=== PATIENT | male | born 1950 | race Caucasian/White ===

== ENCOUNTER 2017-08-24 22:22 | Inpatient (IN) | payer MEDICARE, OTHER ==
[~2017-08-24] VITALS: Ht 182.9 cm; Wt 65.1 kg
--- NOTE | ~2017-08-24 | CN ---
PATIENT NAME:DAIJA RENE MEDICAL RECORD: [id number] : 50 LOCATION:[facility] ADMIT DATE: 08/25/17 ACCOUNT: [id number] CONSULTING PHYSICIAN: DEBORAH WHITNEY MD REFERRING PHYSICIAN: LEANN MARTINEZ MD DATE OF CONSULTATION: 08/31/2017 CONSULT REQUESTING PHYSICIAN: Dr. Mari REASON FOR CONSULTATION: Broncholith. HISTORY OF PRESENT ILLNESS: Mr. Rene is a 67-year-old gentleman, who was admitted with left empyema, loculated fluid. He underwent decortication yesterday. During the procedure, the fiberoptic bronchoscopy showed that he has broncholith in the right lower lobe bronchus. According to the patient, he does not have any exposure to TB, fungal infection, or any foreign body aspiration. 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 REVIEW OF SYSTEMS: Mainly in the history of present illness. PAST MEDICAL HISTORY: 1. Gastroesophageal reflux disease. 2. Chronic cough. The patient is a chronic pipe smoker. No documented COPD. PAST SURGICAL HISTORY: 1. He has a PEG tube placement. 2. Tonsillectomy 3. Adenoidectomy. ALLERGIES: No known drug allergies. PRESENT MEDICATIONS: He is on Levaquin IV. His other medication is reviewed. PERSONAL AND SOCIAL HISTORY: The patient is still current everyday pipe smoker. He is a nondrinker. FAMILY HISTORY: Noncontributory. PHYSICAL EXAMINATION: GENERAL: Now, the patient is lying comfortably in bed. He is not in acute distress. VITAL SIGNS: The blood pressure is 100/59, pulse is 100, respiration is 25, temperature is 99.4, SpO2 is 92% on 2 liter nasal cannula. HEENT: Conjunctiva is pink. Sclera is not icteric. NECK: Neck is supple. No JVD. CHEST: There are bilateral crackles. There is a chest tube on the left side. There are crackles, wheeze on forceful expiration. HEART: Rhythm regular, normal sound. No murmur. ABDOMEN: Soft. Bowel sounds present. No hepatosplenomegaly. RECTAL: Deferred. EXTREMITIES: No cyanosis, no clubbing, no pedal edema. SKIN: The skin is warm, normal turgor. CENTRAL NERVOUS SYSTEM: The patient is awake and alert. There are no obvious cranial nerve abnormalities. The gait was not tested. CONSULT REPORT [id number] DAIJA RENE IMAGING: Chest radiograph: There is no pneumothorax. There is small left pleural effusion. There is improvement of the left basilar consolidation. There is near complete resolution of right mid lung atelectasis. The chest tube is in place. OTHER LABORATORY DATA: CBC: The WBC is 23.1, hemoglobin 10.9, hematocrit 33.2, the platelet count 391. Chemistry: Sodium 139, potassium is 3.8, BUN is 8, creatinine 0.6. ABG: The pH is 7.43, pCO2 is 35.1, the pO2 of 72, bicarbonate is 23.5. IMPRESSION: 1. Acute hypoxic respiratory failure secondary to pneumonia, left lower lobe. Post-procedure decortication. 2. Right lung broncholith. 3. Left-sided empyema status post decortication. 4. Chronic obstructive pulmonary disease, suspect with a history of tobacco dependence syndrome, pipe smoking. 5. Leukocytosis. 6. Gastroesophageal reflux disease. RECOMMENDATIONS: 1. I will start him on albuterol/ipratropium nebulizer, Brovana and budesonide nebulizer. Continue empiric Levaquin. 2. Follow up on the culture. 3. Check high-resolution CT scan of the chest for the broncholith. 4. Check fungal serology. Dr. Mari, thank you for involving Mr. Rene. TRANSINT:[id number] Voice Confirmation ID: [id number] DOCUMENT ID: [id number] DEBORAH WHITNEY MD at 1340 CC: JEROD MARI MD [id number] DICTATION DATE: 08/31/17 1147 PLACEMENT COORDINATOR: 08/31/17 1242 ADM IN [facility] [address] [facility] [place] [address]
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
[2017-08-24 23:13] LABS: BASOPHILS 0.1 % (0-2); EOSINOPHILS 0.1 % (0-7); HEMOGLOBIN 14.4 g/dL (13.5-17.5); IMMATURE GRANULOCYTES 0.3 % (0-5); LYMPHOCYTES 4.2 % (15-50); MCH 29.1 pg (26.0-34.0); MCHC 33.5 g/dL (31.0-37.0); MEAN PLATELET VOLUME 8.9 fL (7.4-10.4); MONOCYTES 8.5 % (2-11); NEUTROPHILS 86.8 % (40-80); PLATELET COUNT 355 10x3/uL (130-400); RBC 4.94 10x6/uL (4.20-6.10); RDW 13.5 % (11.5-14.5); WBC 19.3 10x3/uL (4.8-10.8)
[2017-08-24 23:29] LABS: ALKALINE PHOSPHATASE 85 U/L (46-116); ALT (SGPT) 29 U/L (10-68); BILIRUBIN - TOTAL 1.11 mg/dL (0.2-1.3); CALC OSMOLALITY 279 mosm/kg (275-300); CALCIUM 9.3 mg/dL (8.5-10.1); CARBON DIOXIDE 27.2 mmol/L (21.0-32.0); CHLORIDE - SERUM 102 mmol/L (98-107); CREATININE - SERUM 0.9 mg/dL (0.6-1.3); GLUCOSE 147 mg/dL (74-106); POTASSIUM - SERUM 4.1 mmol/L (3.5-5.1); PROTEIN - SERUM 7.6 g/dL (6.4-8.2); SODIUM 138 mmol/L (136-145); UREA NITROGEN 15 mg/dL (7-18); eGFR NON AFRICAN AMERICAN 89 mL/min (90-120)
[2017-08-24 23:41] LABS: CHOL - HDL RATIO 3.3 ratio (2.3-4.9); CKMB 0.9 U/L (0.0-3.6); CREATINE KINASE 78 UL (21-232); HDL CHOLESTEROL 39 mg/dL (32-96); LDL CHOLESTEROL 78 mg/dL (0-100); PRO BNP 160 pg/mL (0-125); TRIGLYCERIDE 69 mg/dL (30-200)
[2017-08-24 23:43] LABS: CHOLESTEROL, TOTAL 130 mg/dL (0-200); TROPONIN-I < 0.017 ng/mL (0.000-0.060)
[2017-08-25 07:37] LABS: CALC OSMOLALITY 274 mosm/kg (275-300); CALCIUM 8.9 mg/dL (8.5-10.1); CARBON DIOXIDE 26.3 mmol/L (21.0-32.0); CHLORIDE - SERUM 102 mmol/L (98-107); CREATININE - SERUM 0.8 mg/dL (0.6-1.3); GLUCOSE 101 mg/dL (74-106); POTASSIUM - SERUM 4.2 mmol/L (3.5-5.1); SODIUM 137 mmol/L (136-145); UREA NITROGEN 14 mg/dL (7-18); eGFR NON AFRICAN AMERICAN > 90 mL/min (90-120)
[2017-08-25 08:07] LABS: HEMATOCRIT 40.3 % (42.0-54.0); HEMOGLOBIN 13.3 g/dL (13.5-17.5); MCV 87.8 fL (80.0-100.0); MEAN PLATELET VOLUME 9.1 fL (7.4-10.4); PLATELET COUNT 364 10x3/uL (130-400); RBC 4.59 10x6/uL (4.20-6.10); RDW 13.5 % (11.5-14.5); WBC 20.7 10x3/uL (4.8-10.8)
[2017-08-25 08:58] LABS: LYMPHOCYTES 8 % (15-50); MONOCYTES 10 % (2-11); NEUTROPHILS 82 % (40-80); PLATELET ESTIMATE NORMAL; ROULEAUX OCC
[2017-08-25 11:33] LABS: CREATINE KINASE 267 UL (21-232); TROPONIN-I < 0.017 ng/mL (0.000-0.060)
[2017-08-25] MEDS ORDERED: MULTIPLE VITAMI1 TA1 PO (16:41)
[2017-08-25] MEDS ORDERED: ALEVE220 MG PO (16:41)
[2017-08-25] MEDS ORDERED: CLARITIN 10 MG10 MG PO (16:42)
[2017-08-25] MEDS ORDERED: BAYER CHEWABLE81 MG PO (16:42)
[2017-08-25 17:49] LABS: CKMB 2.2 U/L (0.0-3.6); CREATINE KINASE 265 UL (21-232)
[2017-08-25 17:51] LABS: TROPONIN-I < 0.017 ng/mL (0.000-0.060)
[2017-08-25 18:33] VITALS: BP 103/73; BMI 22.4
[2017-08-25 21:52] VITALS: BP 118/67
[2017-08-25 22:57] LABS: CKMB 1.9 U/L (0.0-3.6)
[2017-08-25 23:03] LABS: CREATINE KINASE 2 UL (21-232); TROPONIN-I < 0.017 ng/mL (0.000-0.060)
[2017-08-26 05:34] VITALS: BP 108/54
[2017-08-26 05:57] LABS: BASOPHILS 0.1 % (0-2); EOSINOPHILS 0.7 % (0-7); HEMATOCRIT 37.8 % (42.0-54.0); HEMOGLOBIN 12.4 g/dL (13.5-17.5); IMMATURE GRANULOCYTES 0.1 % (0-5); LYMPHOCYTES 9.7 % (15-50); MCH 28.7 pg (26.0-34.0); MCHC 32.8 g/dL (31.0-37.0); MCV 87.5 fL (80.0-100.0); MEAN PLATELET VOLUME 8.8 fL (7.4-10.4); MONOCYTES 9.6 % (2-11); NEUTROPHILS 79.8 % (40-80); PLATELET COUNT 323 10x3/uL (130-400); RBC 4.32 10x6/uL (4.20-6.10); RDW 13.5 % (11.5-14.5); WBC 16.1 10x3/uL (4.8-10.8)
[2017-08-26 06:03] LABS: CALC OSMOLALITY 275 mosm/kg (275-300); CALCIUM 8.5 mg/dL (8.5-10.1); CARBON DIOXIDE 25.5 mmol/L (21.0-32.0); CHLORIDE - SERUM 104 mmol/L (98-107); CREATININE - SERUM 0.7 mg/dL (0.6-1.3); GLUCOSE 101 mg/dL (74-106); POTASSIUM - SERUM 3.8 mmol/L (3.5-5.1); SODIUM 138 mmol/L (136-145); UREA NITROGEN 12 mg/dL (7-18); eGFR NON AFRICAN AMERICAN > 90 mL/min (90-120)
[2017-08-26 07:55] VITALS: BP 106/60
[2017-08-26 11:49] VITALS: BP 88/60
[2017-08-26 13:43] VITALS: BMI 22.3
[2017-08-26 15:37] VITALS: BP 114/62
[2017-08-26 17:18] LABS: INR 1.2 (0.85-1.17); PROTIME 14.7 SECONDS (11.6-15.0)
[2017-08-26 17:19] LABS: APTT 34.4 SECONDS (22.8-39.4)
[2017-08-26 20:17] LABS: PROTEIN - BODY FLUID 3.9 G/DL
[2017-08-26 21:13] LABS: MACROPHAGES BF 1 %; NEUT - BF 90 %
[2017-08-26 22:49] VITALS: BP 112/81
[2017-08-27 02:50] VITALS: BP 94/62
[2017-08-27 05:04] LABS: BASOPHILS 0.2 % (0-2); EOSINOPHILS 2.3 % (0-7); HEMATOCRIT 32.3 % (42.0-54.0); HEMOGLOBIN 10.5 g/dL (13.5-17.5); IMMATURE GRANULOCYTES 0.1 % (0-5); LYMPHOCYTES 13.4 % (15-50); MCH 28.2 pg (26.0-34.0); MCHC 32.5 g/dL (31.0-37.0); MCV 86.6 fL (80.0-100.0); MEAN PLATELET VOLUME 8.9 fL (7.4-10.4); MONOCYTES 12.9 % (2-11); NEUTROPHILS 71.1 % (40-80); PLATELET COUNT 293 10x3/uL (130-400); RBC 3.73 10x6/uL (4.20-6.10); RDW 13.5 % (11.5-14.5)
[2017-08-27 05:16] LABS: WBC 11.2 10x3/uL (4.8-10.8)
[2017-08-27 05:24] LABS: CALC OSMOLALITY 268 mosm/kg (275-300); CALCIUM 7.6 mg/dL (8.5-10.1); CARBON DIOXIDE 24.1 mmol/L (21.0-32.0); CHLORIDE - SERUM 102 mmol/L (98-107); CREATININE - SERUM 0.6 mg/dL (0.6-1.3); GLUCOSE 89 mg/dL (74-106); POTASSIUM - SERUM 3.4 mmol/L (3.5-5.1); SODIUM 136 mmol/L (136-145); eGFR NON AFRICAN AMERICAN > 90 mL/min (90-120)
[2017-08-27 05:29] LABS: UREA NITROGEN 8 mg/dL (7-18)
[2017-08-27 05:54] VITALS: BP 94/65
[2017-08-27 07:41] VITALS: BP 85/57
[2017-08-27 11:10] VITALS: BP 100/61
[2017-08-27 15:16] VITALS: BP 106/44
[2017-08-27 22:24] VITALS: BP 111/74
[2017-08-28 02:24] VITALS: BP 108/74
[2017-08-28 05:25] VITALS: BP 119/75
[2017-08-28 05:59] LABS: BASOPHILS 0.2 % (0-2); EOSINOPHILS 1.3 % (0-7); HEMATOCRIT 33.1 % (42.0-54.0); HEMOGLOBIN 10.9 g/dL (13.5-17.5); IMMATURE GRANULOCYTES 0.2 % (0-5); LYMPHOCYTES 8.5 % (15-50); MCH 27.9 pg (26.0-34.0); MCHC 32.9 g/dL (31.0-37.0); MCV 84.9 fL (80.0-100.0); MEAN PLATELET VOLUME 8.9 fL (7.4-10.4); MONOCYTES 14.3 % (2-11); NEUTROPHILS 75.5 % (40-80); PLATELET COUNT 330 10x3/uL (130-400); RDW 13.7 % (11.5-14.5); WBC 12.4 10x3/uL (4.8-10.8)
[2017-08-28 06:11] LABS: CALC OSMOLALITY 273 mosm/kg (275-300); CALCIUM 7.8 mg/dL (8.5-10.1); CARBON DIOXIDE 22.3 mmol/L (21.0-32.0); CHLORIDE - SERUM 104 mmol/L (98-107); CREATININE - SERUM 0.5 mg/dL (0.6-1.3); GLUCOSE 94 mg/dL (74-106); POTASSIUM - SERUM 3.4 mmol/L (3.5-5.1); SODIUM 138 mmol/L (136-145); UREA NITROGEN 6 mg/dL (7-18); eGFR NON AFRICAN AMERICAN > 90 mL/min (90-120)
[2017-08-28 08:00] VITALS: BP 110/75
[2017-08-28 11:30] VITALS: BP 121/80
[2017-08-28 12:08] LABS: AFB SPECIMEN PROCESSING Concentration (())
[2017-08-28 15:30] VITALS: BP 110/72
[2017-08-28 21:51] VITALS: BP 112/70
[2017-08-29 05:05] VITALS: BP 120/74
[2017-08-29 06:03] LABS: BASOPHILS 0.1 % (0-2); EOSINOPHILS 2.1 % (0-7); HEMATOCRIT 33.6 % (42.0-54.0); HEMOGLOBIN 11.2 g/dL (13.5-17.5); IMMATURE GRANULOCYTES 0.2 % (0-5); LYMPHOCYTES 11.6 % (15-50); MCH 28.6 pg (26.0-34.0); MCHC 33.3 g/dL (31.0-37.0); MCV 85.7 fL (80.0-100.0); MONOCYTES 12.9 % (2-11); NEUTROPHILS 73.1 % (40-80); PLATELET COUNT 340 10x3/uL (130-400); RBC 3.92 10x6/uL (4.20-6.10); RDW 13.6 % (11.5-14.5); WBC 12.7 10x3/uL (4.8-10.8)
[2017-08-29 06:16] LABS: CALC OSMOLALITY 268 mosm/kg (275-300); CALCIUM 8.1 mg/dL (8.5-10.1); CARBON DIOXIDE 24.7 mmol/L (21.0-32.0); CHLORIDE - SERUM 102 mmol/L (98-107); CREATININE - SERUM 0.6 mg/dL (0.6-1.3); GLUCOSE 87 mg/dL (74-106); POTASSIUM - SERUM 3.6 mmol/L (3.5-5.1); SODIUM 136 mmol/L (136-145); UREA NITROGEN 6 mg/dL (7-18); eGFR NON AFRICAN AMERICAN > 90 mL/min (90-120)
[2017-08-29 09:38] VITALS: BP 112/74
[2017-08-29 15:04] VITALS: BP 113/78
[2017-08-29 18:41] LABS: HEMATOCRIT 34.8 % (42.0-54.0); HEMOGLOBIN 11.3 g/dL (13.5-17.5); MCHC 32.5 g/dL (31.0-37.0); MCV 86.1 fL (80.0-100.0); MEAN PLATELET VOLUME 9.4 fL (7.4-10.4); RBC 4.04 10x6/uL (4.20-6.10); RDW 13.7 % (11.5-14.5); WBC 12.3 10x3/uL (4.8-10.8)
[2017-08-29 18:51] LABS: APTT 20.2 SECONDS (22.8-39.4); INR 1.14 (0.85-1.17); PROTIME 14.2 SECONDS (11.6-15.0)
[2017-08-29 18:56] LABS: ALBUMIN 2.2 g/dL (3.4-5.0); ALKALINE PHOSPHATASE 101 U/L (46-116); ALT (SGPT) 36 U/L (10-68); CALC OSMOLALITY 270 mosm/kg (275-300); CARBON DIOXIDE 22.4 mmol/L (21.0-32.0); CHLORIDE - SERUM 101 mmol/L (98-107); CREATININE - SERUM 0.7 mg/dL (0.6-1.3); GLUCOSE 120 mg/dL (74-106); POTASSIUM - SERUM 3.7 mmol/L (3.5-5.1); PROTEIN - SERUM 5.6 g/dL (6.4-8.2); SODIUM 136 mmol/L (136-145); UREA NITROGEN 6 mg/dL (7-18); eGFR NON AFRICAN AMERICAN > 90 mL/min (90-120)
[2017-08-29 18:59] VITALS: BP 120/76
[2017-08-29 23:59] VITALS: BP 136/80
[2017-08-30] VITALS (17 sets, daily range): BP systolic 85–148; BP diastolic 46–84; BMI 158.7
[2017-08-30 06:57] LABS: BASOPHILS 0.2 % (0-2); EOSINOPHILS 1.9 % (0-7); HEMATOCRIT 35.5 % (42.0-54.0); HEMOGLOBIN 11.7 g/dL (13.5-17.5); IMMATURE GRANULOCYTES 0.4 % (0-5); LYMPHOCYTES 12.1 % (15-50); MCH 28.2 pg (26.0-34.0); MCV 85.5 fL (80.0-100.0); MEAN PLATELET VOLUME 8.9 fL (7.4-10.4); MONOCYTES 14.2 % (2-11); NEUTROPHILS 71.2 % (40-80); RBC 4.15 10x6/uL (4.20-6.10); RDW 13.5 % (11.5-14.5); WBC 11.3 10x3/uL (4.8-10.8)
[2017-08-30 07:02] LABS: PLATELET COUNT 372 10x3/uL (130-400)
[2017-08-30 07:05] LABS: CALC OSMOLALITY 271 mosm/kg (275-300); CALCIUM 8.5 mg/dL (8.5-10.1); CARBON DIOXIDE 25.9 mmol/L (21.0-32.0); CHLORIDE - SERUM 100 mmol/L (98-107); CREATININE - SERUM 0.8 mg/dL (0.6-1.3); GLUCOSE 129 mg/dL (74-106); POTASSIUM - SERUM 3.5 mmol/L (3.5-5.1); SODIUM 136 mmol/L (136-145); UREA NITROGEN 6 mg/dL (7-18); eGFR NON AFRICAN AMERICAN > 90 mL/min (90-120)
[2017-08-30 17:53] LABS: APPEARANCE HAZY (CLEAR); BILIRUBIN NEGATIVE (NEGATIVE); COLOR DK YELLOW (YELLOW); GLUCOSE NEGATIVE (NEGATIVE); KETONE SMALL mg/dL (NEGATIVE); NITRITE NEGATIVE (NEGATIVE); PROTEIN NEGATIVE (NEGATIVE); UROBILINOGEN NORMAL (NORMAL)
[2017-08-30 17:54] LABS: RED CELLS - URINE >50 /hpf (0-5); WHITE CELLS - URINE 0-5 /hpf (0-5)
[2017-08-30 17:55] LABS: BACTERIA MODERATE /hpf (NONE SEEN); EPITHELIAL CELLS 0-5 /hpf (0-5)
[2017-08-31] VITALS (51 sets, daily range): BP systolic 79–119; BP diastolic 45–93
[2017-08-31 06:16] LABS: HEMATOCRIT 33.2 % (42.0-54.0); HEMOGLOBIN 10.9 g/dL (13.5-17.5); MCH 28.1 pg (26.0-34.0); MCHC 32.8 g/dL (31.0-37.0); MCV 85.6 fL (80.0-100.0); MEAN PLATELET VOLUME 8.7 fL (7.4-10.4); RBC 3.88 10x6/uL (4.20-6.10); RDW 13.8 % (11.5-14.5); WBC 23.1 10x3/uL (4.8-10.8)
[2017-08-31 06:24] LABS: ALKALINE PHOSPHATASE 62 U/L (46-116); CALCIUM 7.8 mg/dL (8.5-10.1); CHLORIDE - SERUM 105 mmol/L (98-107); CREATININE - SERUM 0.6 mg/dL (0.6-1.3); GLUCOSE 115 mg/dL (74-106); POTASSIUM - SERUM 3.8 mmol/L (3.5-5.1); PROTEIN - SERUM 5.2 g/dL (6.4-8.2); SODIUM 139 mmol/L (136-145); eGFR NON AFRICAN AMERICAN > 90 mL/min (90-120)
[2017-08-31 06:25] LABS: ALBUMIN 1.6 g/dL (3.4-5.0); ALT (SGPT) 24 U/L (10-68); CALC OSMOLALITY 276 mosm/kg (275-300); UREA NITROGEN 8 mg/dL (7-18)
[2017-08-31 10:22] LABS: FUNGUS STAIN Final report (())
[2017-08-31 13:17] LABS: FUNGUS STAIN Final report (())
[2017-08-31 17:12] LABS: AFB SPECIMEN PROCESSING Concentration (())
[2017-09-01] VITALS (27 sets, daily range): BP systolic 78–123; BP diastolic 32–76
[2017-09-01 06:15] LABS: HEMATOCRIT 31.2 % (42.0-54.0); HEMOGLOBIN 10.3 g/dL (13.5-17.5); MCH 28.1 pg (26.0-34.0); MEAN PLATELET VOLUME 8.7 fL (7.4-10.4); RBC 3.67 10x6/uL (4.20-6.10); RDW 13.6 % (11.5-14.5); WBC 21.2 10x3/uL (4.8-10.8)
[2017-09-01 06:28] LABS: ALBUMIN 1.6 g/dL (3.4-5.0); ALKALINE PHOSPHATASE 64 U/L (46-116); ALT (SGPT) 24 U/L (10-68); CALC OSMOLALITY 271 mosm/kg (275-300); CALCIUM 7.7 mg/dL (8.5-10.1); CARBON DIOXIDE 27.6 mmol/L (21.0-32.0); CHLORIDE - SERUM 102 mmol/L (98-107); CREATININE - SERUM 0.5 mg/dL (0.6-1.3); GLUCOSE 105 mg/dL (74-106); PROTEIN - SERUM 5.1 g/dL (6.4-8.2); SODIUM 137 mmol/L (136-145); UREA NITROGEN 7 mg/dL (7-18); eGFR NON AFRICAN AMERICAN > 90 mL/min (90-120)
[2017-09-01 06:33] LABS: POTASSIUM - SERUM 3.2 mmol/L (3.5-5.1)
[2017-09-02] VITALS (27 sets, daily range): BP systolic 75–118; BP diastolic 43–71
[2017-09-02 05:04] LABS: HEMATOCRIT 30.9 % (42.0-54.0); HEMOGLOBIN 10.1 g/dL (13.5-17.5); MCH 27.8 pg (26.0-34.0); MCHC 32.7 g/dL (31.0-37.0); MCV 85.1 fL (80.0-100.0); MEAN PLATELET VOLUME 8.7 fL (7.4-10.4); RBC 3.63 10x6/uL (4.20-6.10); RDW 13.9 % (11.5-14.5); WBC 21.1 10x3/uL (4.8-10.8)
[2017-09-02 05:12] LABS: ALBUMIN 1.6 g/dL (3.4-5.0); ALKALINE PHOSPHATASE 73 U/L (46-116); ALT (SGPT) 25 U/L (10-68); BILIRUBIN - TOTAL 0.99 mg/dL (0.2-1.3); CALC OSMOLALITY 268 mosm/kg (275-300); CALCIUM 7.8 mg/dL (8.5-10.1); CARBON DIOXIDE 28.6 mmol/L (21.0-32.0); CHLORIDE - SERUM 102 mmol/L (98-107); CREATININE - SERUM 0.6 mg/dL (0.6-1.3); GLUCOSE 113 mg/dL (74-106); POTASSIUM - SERUM 3.8 mmol/L (3.5-5.1); PROTEIN - SERUM 5.4 g/dL (6.4-8.2); SODIUM 135 mmol/L (136-145); UREA NITROGEN 6 mg/dL (7-18); eGFR NON AFRICAN AMERICAN > 90 mL/min (90-120)
[2017-09-03] VITALS (67 sets, daily range): BP systolic 76–117; BP diastolic 31–74
[2017-09-03 05:42] LABS: HEMATOCRIT 29.6 % (42.0-54.0); HEMOGLOBIN 10.5 g/dL (13.5-17.5); MCH 29.9 pg (26.0-34.0); MCHC 35.5 g/dL (31.0-37.0); MCV 84.3 fL (80.0-100.0); MEAN PLATELET VOLUME 8.5 fL (7.4-10.4); RBC 3.51 10x6/uL (4.20-6.10); RDW 13.9 % (11.5-14.5); WBC 21.3 10x3/uL (4.8-10.8)
[2017-09-03 06:06] LABS: ALBUMIN 1.5 g/dL (3.4-5.0); ALKALINE PHOSPHATASE 83 U/L (46-116); ALT (SGPT) 27 U/L (10-68); BILIRUBIN - TOTAL 1.02 mg/dL (0.2-1.3); CALC OSMOLALITY 267 mosm/kg (275-300); CALCIUM 8.1 mg/dL (8.5-10.1); CARBON DIOXIDE 26.8 mmol/L (21.0-32.0); CHLORIDE - SERUM 101 mmol/L (98-107); CREATININE - SERUM 0.7 mg/dL (0.6-1.3); GLUCOSE 93 mg/dL (74-106); POTASSIUM - SERUM 4.1 mmol/L (3.5-5.1); PROTEIN - SERUM 5.6 g/dL (6.4-8.2); SODIUM 135 mmol/L (136-145); eGFR NON AFRICAN AMERICAN > 90 mL/min (90-120)
[2017-09-03 06:07] LABS: UREA NITROGEN 8 mg/dL (7-18)
[2017-09-04] VITALS (35 sets, daily range): BP systolic 73–145; BP diastolic 47–72
[2017-09-04 04:50] LABS: HEMATOCRIT 31.3 % (42.0-54.0); HEMOGLOBIN 10.1 g/dL (13.5-17.5); MCH 27.2 pg (26.0-34.0); MCHC 32.3 g/dL (31.0-37.0); MCV 84.4 fL (80.0-100.0); MEAN PLATELET VOLUME 8.6 fL (7.4-10.4); RBC 3.71 10x6/uL (4.20-6.10); RDW 13.7 % (11.5-14.5); WBC 17.9 10x3/uL (4.8-10.8)
[2017-09-04 05:03] LABS: CALC OSMOLALITY 269 mosm/kg (275-300); CALCIUM 7.8 mg/dL (8.5-10.1); CARBON DIOXIDE 29.3 mmol/L (21.0-32.0); CHLORIDE - SERUM 100 mmol/L (98-107); CREATININE - SERUM 0.6 mg/dL (0.6-1.3); GLUCOSE 127 mg/dL (74-106); POTASSIUM - SERUM 3.7 mmol/L (3.5-5.1); SODIUM 135 mmol/L (136-145); UREA NITROGEN 8 mg/dL (7-18); eGFR NON AFRICAN AMERICAN > 90 mL/min (90-120)
[2017-09-04 14:09] LABS: FUNGAL - ASP FLAVUS Negative (Neg:<1:1); FUNGAL - ASP NIGER Negative (Neg:<1:1); FUNGAL - ASPER FUMIGATUS Negative (Neg:<1:1)
[2017-09-05] VITALS (29 sets, daily range): BP systolic 80–106; BP diastolic 51–64
[2017-09-05 03:46] LABS: HEMATOCRIT 31.1 % (42.0-54.0); HEMOGLOBIN 10.3 g/dL (13.5-17.5); MCH 28.1 pg (26.0-34.0); MCHC 33.1 g/dL (31.0-37.0); MCV 84.7 fL (80.0-100.0); MEAN PLATELET VOLUME 8.4 fL (7.4-10.4); RBC 3.67 10x6/uL (4.20-6.10); WBC 18.7 10x3/uL (4.8-10.8)
[2017-09-05 03:57] LABS: CALC OSMOLALITY 278 mosm/kg (275-300); CALCIUM 7.9 mg/dL (8.5-10.1); CHLORIDE - SERUM 103 mmol/L (98-107); CREATININE - SERUM 0.6 mg/dL (0.6-1.3); GLUCOSE 109 mg/dL (74-106); POTASSIUM - SERUM 4.2 mmol/L (3.5-5.1); SODIUM 140 mmol/L (136-145); UREA NITROGEN 9 mg/dL (7-18); eGFR NON AFRICAN AMERICAN > 90 mL/min (90-120)
[2017-09-05 16:07] LABS: BASOPHILS 0.2 % (0-2); EOSINOPHILS 2.5 % (0-7); HEMATOCRIT 34.3 % (42.0-54.0); IMMATURE GRANULOCYTES 1.1 % (0-5); MCH 27.3 pg (26.0-34.0); MCHC 32.1 g/dL (31.0-37.0); MCV 85.1 fL (80.0-100.0); MEAN PLATELET VOLUME 8.8 fL (7.4-10.4); MONOCYTES 8.7 % (2-11); NEUTROPHILS 78.5 % (40-80); RBC 4.03 10x6/uL (4.20-6.10); WBC 17.8 10x3/uL (4.8-10.8)
[2017-09-05 16:09] LABS: PLATELET COUNT 704 10x3/uL (130-400)
[2017-09-06] VITALS (25 sets, daily range): BP systolic 92–113; BP diastolic 45–72
[2017-09-06 06:42] LABS: ALBUMIN 1.6 g/dL (3.4-5.0); ALKALINE PHOSPHATASE 115 U/L (46-116); ALT (SGPT) 42 U/L (10-68); BILIRUBIN - TOTAL 0.52 mg/dL (0.2-1.3); CALC OSMOLALITY 278 mosm/kg (275-300); CALCIUM 7.8 mg/dL (8.5-10.1); CARBON DIOXIDE 25.5 mmol/L (21.0-32.0); CHLORIDE - SERUM 106 mmol/L (98-107); CREATININE - SERUM 0.5 mg/dL (0.6-1.3); GLUCOSE 99 mg/dL (74-106); PHOSPHOROUS 3.5 mg/dL (2.5-4.9); POTASSIUM - SERUM 4.1 mmol/L (3.5-5.1); PROTEIN - SERUM 5.5 g/dL (6.4-8.2); SODIUM 141 mmol/L (136-145); UREA NITROGEN 8 mg/dL (7-18); eGFR NON AFRICAN AMERICAN > 90 mL/min (90-120)
[2017-09-07] VITALS (12 sets, daily range): BP systolic 95–118; BP diastolic 65–77; Ht 182.9 cm; Wt 65.1 kg
[2017-09-07 06:08] LABS: BASOPHILS 0.3 % (0-2); EOSINOPHILS 2.8 % (0-7); HEMATOCRIT 31.5 % (42.0-54.0); HEMOGLOBIN 10.2 g/dL (13.5-17.5); IMMATURE GRANULOCYTES 1.1 % (0-5); LYMPHOCYTES 9.5 % (15-50); MCH 27.2 pg (26.0-34.0); MCHC 32.4 g/dL (31.0-37.0); MEAN PLATELET VOLUME 8.3 fL (7.4-10.4); NEUTROPHILS 77.3 % (40-80); PLATELET COUNT 604 10x3/uL (130-400); RBC 3.75 10x6/uL (4.20-6.10); RDW 13.8 % (11.5-14.5); WBC 14.3 10x3/uL (4.8-10.8)
[2017-09-07 06:25] LABS: ALBUMIN 1.7 g/dL (3.4-5.0); ALKALINE PHOSPHATASE 107 U/L (46-116); ALT (SGPT) 35 U/L (10-68); BILIRUBIN - TOTAL 0.41 mg/dL (0.2-1.3); CALC OSMOLALITY 276 mosm/kg (275-300); CALCIUM 7.8 mg/dL (8.5-10.1); CARBON DIOXIDE 25.8 mmol/L (21.0-32.0); CHLORIDE - SERUM 105 mmol/L (98-107); CREATININE - SERUM 0.6 mg/dL (0.6-1.3); GLUCOSE 112 mg/dL (74-106); POTASSIUM - SERUM 4.1 mmol/L (3.5-5.1); PROTEIN - SERUM 5.8 g/dL (6.4-8.2); SODIUM 139 mmol/L (136-145); UREA NITROGEN 6 mg/dL (7-18); eGFR NON AFRICAN AMERICAN > 90 mL/min (90-120)
[2017-09-08] VITALS: BP 100/69
[2017-09-08 04:00] VITALS: BP 110/73
[2017-09-08 05:54] LABS: BASOPHILS 0.4 % (0-2); EOSINOPHILS 2.2 % (0-7); HEMATOCRIT 34.1 % (42.0-54.0); HEMOGLOBIN 11.2 g/dL (13.5-17.5); IMMATURE GRANULOCYTES 1.6 % (0-5); LYMPHOCYTES 9.8 % (15-50); MCH 27.6 pg (26.0-34.0); MCHC 32.8 g/dL (31.0-37.0); MEAN PLATELET VOLUME 8.4 fL (7.4-10.4); MONOCYTES 8.6 % (2-11); NEUTROPHILS 77.4 % (40-80); PLATELET COUNT 693 10x3/uL (130-400); RBC 4.06 10x6/uL (4.20-6.10); RDW 13.9 % (11.5-14.5); WBC 16.1 10x3/uL (4.8-10.8)
[2017-09-08 06:21] LABS: ALKALINE PHOSPHATASE 106 U/L (46-116); ALT (SGPT) 37 U/L (10-68); CALC OSMOLALITY 273 mosm/kg (275-300); CALCIUM 8.5 mg/dL (8.5-10.1); CARBON DIOXIDE 25.1 mmol/L (21.0-32.0); CHLORIDE - SERUM 105 mmol/L (98-107); CREATININE - SERUM 0.6 mg/dL (0.6-1.3); GLUCOSE 104 mg/dL (74-106); POTASSIUM - SERUM 4.3 mmol/L (3.5-5.1); PROTEIN - SERUM 6.5 g/dL (6.4-8.2); SODIUM 138 mmol/L (136-145); UREA NITROGEN 6 mg/dL (7-18); eGFR NON AFRICAN AMERICAN > 90 mL/min (90-120)
[2017-09-08 08:34] VITALS: BP 136/71
[2017-09-08 11:52] VITALS: BP 106/67
[2017-09-08 16:17] VITALS: BP 117/74
[2017-09-08 20:00] VITALS: BP 115/67
[2017-09-09] VITALS: BP 98/59
[2017-09-09 04:00] VITALS: BP 112/54
[2017-09-09 06:20] LABS: BASOPHILS 0.2 % (0-2); EOSINOPHILS 0.1 % (0-7); HEMATOCRIT 32.5 % (42.0-54.0); HEMOGLOBIN 10.5 g/dL (13.5-17.5); IMMATURE GRANULOCYTES 1.1 % (0-5); LYMPHOCYTES 11.2 % (15-50); MCH 27.4 pg (26.0-34.0); MCHC 32.3 g/dL (31.0-37.0); MCV 84.9 fL (80.0-100.0); MEAN PLATELET VOLUME 8.3 fL (7.4-10.4); MONOCYTES 7.2 % (2-11); NEUTROPHILS 80.2 % (40-80); PLATELET COUNT 716 10x3/uL (130-400); RBC 3.83 10x6/uL (4.20-6.10)
[2017-09-09 06:53] LABS: CALCIUM 8.2 mg/dL (8.5-10.1); CARBON DIOXIDE 25.9 mmol/L (21.0-32.0); CREATININE - SERUM 0.6 mg/dL (0.6-1.3); GLUCOSE 110 mg/dL (74-106); UREA NITROGEN 7 mg/dL (7-18); eGFR NON AFRICAN AMERICAN > 90 mL/min (90-120)
[2017-09-09 07:07] LABS: CALC OSMOLALITY 281 mosm/kg (275-300); CHLORIDE - SERUM 107 mmol/L (98-107); POTASSIUM - SERUM 4.1 mmol/L (3.5-5.1); SODIUM 142 mmol/L (136-145)
[2017-09-09 07:53] VITALS: BP 116/77
[2017-09-09 11:00] VITALS: BP 111/64
[2017-09-09 16:18] VITALS: BP 112/69
[2017-09-09 19:10] LABS: AEROBE ID Final report (())
[2017-09-09 21:05] VITALS: BP 124/77
[2017-09-10 01:47] VITALS: BP 119/72
[2017-09-10 04:55] LABS: BASOPHILS 0.1 % (0-2); EOSINOPHILS 0 % (0-7); HEMATOCRIT 33.2 % (42.0-54.0); HEMOGLOBIN 10.5 g/dL (13.5-17.5); IMMATURE GRANULOCYTES 0.9 % (0-5); LYMPHOCYTES 10.8 % (15-50); MCH 26.9 pg (26.0-34.0); MCHC 31.6 g/dL (31.0-37.0); MCV 85.1 fL (80.0-100.0); MEAN PLATELET VOLUME 8.3 fL (7.4-10.4); MONOCYTES 6.5 % (2-11); NEUTROPHILS 81.7 % (40-80); PLATELET COUNT 762 10x3/uL (130-400); RDW 14.1 % (11.5-14.5); WBC 21.1 10x3/uL (4.8-10.8)
[2017-09-10 05:00] LABS: CALC OSMOLALITY 280 mosm/kg (275-300); CALCIUM 8.3 mg/dL (8.5-10.1); CARBON DIOXIDE 27.4 mmol/L (21.0-32.0); CHLORIDE - SERUM 107 mmol/L (98-107); CREATININE - SERUM 0.6 mg/dL (0.6-1.3); GLUCOSE 117 mg/dL (74-106); POTASSIUM - SERUM 4.3 mmol/L (3.5-5.1); SODIUM 141 mmol/L (136-145); UREA NITROGEN 10 mg/dL (7-18); eGFR NON AFRICAN AMERICAN > 90 mL/min (90-120)
[2017-09-10 05:20] VITALS: BP 162/63
[2017-09-10 07:34] VITALS: BP 121/71
[2017-09-10 11:00] VITALS: BP 99/59
[2017-09-10 15:13] VITALS: BP 103/69
[2017-09-10 20:00] VITALS: BP 115/73
[2017-09-11] VITALS: BP 106/69
[2017-09-11 04:00] VITALS: BP 106/66
[2017-09-11 05:25] LABS: BASOPHILS 0.5 % (0-2); HEMATOCRIT 34.7 % (42.0-54.0); IMMATURE GRANULOCYTES 1.2 % (0-5); LYMPHOCYTES 20.3 % (15-50); MCH 27.3 pg (26.0-34.0); MCHC 31.7 g/dL (31.0-37.0); MCV 86.1 fL (80.0-100.0); MEAN PLATELET VOLUME 8.6 fL (7.4-10.4); MONOCYTES 9.9 % (2-11); NEUTROPHILS 66.1 % (40-80); PLATELET COUNT 744 10x3/uL (130-400); RBC 4.03 10x6/uL (4.20-6.10); RDW 14.4 % (11.5-14.5)
[2017-09-11 05:40] LABS: WBC 15.8 10x3/uL (4.8-10.8)
[2017-09-11 05:55] LABS: CALC OSMOLALITY 279 mosm/kg (275-300); CALCIUM 8.4 mg/dL (8.5-10.1); CARBON DIOXIDE 28.8 mmol/L (21.0-32.0); CHLORIDE - SERUM 107 mmol/L (98-107); CREATININE - SERUM 0.7 mg/dL (0.6-1.3); GLUCOSE 83 mg/dL (74-106); POTASSIUM - SERUM 4.2 mmol/L (3.5-5.1); SODIUM 142 mmol/L (136-145); UREA NITROGEN 8 mg/dL (7-18); eGFR NON AFRICAN AMERICAN > 90 mL/min (90-120)
[2017-09-11 07:35] VITALS: BP 91/66
[2017-09-11] MEDS ORDERED: LOPRESSOR25 MG PO (09:59)
[2017-09-11] MEDS ORDERED: PREDNISONE20 MG PO (10:01)
[2017-09-11] MEDS ORDERED: ALBUTEROL2.5 MG/3 M INH (10:02)
[2017-09-11] MEDS ORDERED: IPRAT-ALBUT 0.5-3 ML UPD (10:03)
[2017-09-11] MEDS ORDERED: LEVAQUIN500 MG PO (10:04)
[2017-09-12 16:11] LABS: AEROBE ID Final report (())
[2017-09-26 13:16] LABS: FUNGUS MYCOLOGY CULTURE Final report (())
[2017-09-27 10:19] LABS: FUNGUS MYCOLOGY CULTURE Final report (())
[2017-10-18 17:13] LABS: ACID FAST CULTURE Negative (()); ACID FAST SMEAR Negative (())
[2017-10-25 11:20] LABS: ACID FAST CULTURE Negative (()); ACID FAST SMEAR Negative (())
== END 2017-09-11 13:52 | disposition home health service (06) | DRG 163 ==
LOC: D.ER 22:22 → D.EDHOLD 08-25 00:16 → D.MS 08-25 00:16 → D.CVICU 08-25 00:16 → D.MS 08-25 16:08 → D.CVICU 08-30 13:23 → D.SDCHOLD 09-07 15:59 → D.CVICU 09-07 16:07 → D.M2 09-07 18:03
PROVIDERS: Family Medicine; General Practice; Internal Medicine Nephrology; Internal Medicine Pulmonary Disease; Thoracic Surgery (Cardiothoracic Vascular Surgery)
PROC: 0W9B3ZZ Drainage of Left Pleural Cavity, Percutaneous Approach (ICD-10-PCS; 2017-08-26)
PROC: 0BBF8ZX Excision of Right Lower Lung Lobe, Via Natural or Artificial Opening Endoscopic, Diagnostic (ICD-10-PCS; 2017-08-30)
PROC: 0BNP0ZZ Release Left Pleura, Open Approach (ICD-10-PCS; 2017-08-30)
PROC: 0BBJ4ZZ Excision of Left Lower Lung Lobe, Percutaneous Endoscopic Approach (ICD-10-PCS; principal; 2017-08-30 09:30)
PROC: 0BNL4ZZ Release Left Lung, Percutaneous Endoscopic Approach (ICD-10-PCS; 2017-08-30 09:30)
PROC: 0B5P4ZZ Destruction of Left Pleura, Percutaneous Endoscopic Approach (ICD-10-PCS; 2017-08-30 09:30)
PROC: 02HV33Z Insertion of Infusion Device into Superior Vena Cava, Percutaneous Approach (ICD-10-PCS; 2017-09-05)
PROC: B548ZZA Ultrasonography of Superior Vena Cava, Guidance (ICD-10-PCS; 2017-09-05)
DX: J86.9 Pyothorax without fistula (principal); J18.9 Pneumonia, unspecified organism; J96.21 Acute and chronic respiratory failure with hypoxia; J44.0 Chronic obstructive pulmonary disease with (acute) lower respiratory infection; J90 Pleural effusion, not elsewhere classified; J98.11 Atelectasis; F17.290 Nicotine dependence, other tobacco product, uncomplicated; G89.29 Other chronic pain; K21.9 Gastro-esophageal reflux disease without esophagitis; I95.9 Hypotension, unspecified; D47.3 Essential (hemorrhagic) thrombocythemia; J98.09 Other diseases of bronchus, not elsewhere classified

== ENCOUNTER → 2018-05-16 11:06 | Outpatient (CLI) | payer MEDICARE, OTHER ==
[2017-09-07 12:31] VITALS: BMI 158.7
[~2018-05-16 11:06] MED LIST: ALBUTEROL2.5 MG/3 M INH; ALEVE220 MG PO; BAYER CHEWABLE81 MG PO; CLARITIN 10 MG10 MG PO; IPRAT-ALBUT 0.5-3 ML UPD; LEVAQUIN500 MG PO; LOPRESSOR25 MG PO; MULTIPLE VITAMI1 TA1 PO; PREDNISONE20 MG PO
== END | disposition home or self-care (01) ==
LOC: D.RAD 11:06
DX: J98.09 Other diseases of bronchus, not elsewhere classified (principal)

== ENCOUNTER → 2018-09-28 12:54 | Outpatient (CLI) | payer MEDICARE, OTHER ==
[2017-09-07 12:31] VITALS: BMI 158.7
== END | disposition home or self-care (01) ==
LOC: D.RAD 09-19 08:30
PROVIDERS: ATTEND Internal Medicine Pulmonary Disease
DX: J86.9 Pyothorax without fistula (principal)